=== PATIENT | male | born 1960 | race Caucasian/White ===

== ENCOUNTER 2024-12-03 10:29 | Emergency (ER) | payer OTHER ==
[~2024-12-03] VITALS: Ht 167.6 cm; Wt 95.5 kg
[~2024-12-03 10:29] MED LIST: CALC1TAB15 PO; CARI350T PO; INDO-16 PO; LISI-892 PO; METH2.5T7 PO; MULT1CAP32 PO
[2024-12-03] MEDS ORDERED: METF-1185 PO (10:45)
[2024-12-03] MEDS ORDERED: ETAN25SY IM (10:45)
[2024-12-03] MEDS ORDERED: FOLI0.4T6 PO (10:45)
[2024-12-03] MEDS ORDERED: AMLO2.5T96 PO (10:45)
[2024-12-03 10:55] LABS: PLATELET COUNT (AUTO) 291 K/uL (150-450); RED BLOOD CELL COUNT(AUTO) 4.85 MIL/uL (4.50-5.90); RED CELL DISTRIBUTION WIDTH 14.4 % (11.5-14.5); WHITE BLOOD COUNT (AUTO) 6.7 K/uL (4.5-11.0)
[2024-12-03 10:56] LABS: GLUCOMETER DEV NAME(LOC) ER.7; GLUCOSE,POINT OF CARE 152 MG/DL (70-110)
[2024-12-03 11:03] LABS: CALCIUM, TOTAL 9.5 mg/dL (8.8-10.5); CREATININE 1.18 mg/dL (0.60-1.30); GLOMERULAR FILTR. RATE CALC > 60 mL/min (>60); GLUCOSE,RANDOM 148 mg/dL (70-110); SODIUM SERUM 135 mmol/L (136-145); UREA NITROGEN, BLOOD 22 mg/dL (7-18)
[2024-12-03] MEDS ORDERED: MULT-660 PO (11:09)
[2024-12-03 11:12] LABS: TROPONIN I-HIGH SENSITIVITY 5 ng/L (<76)
[2024-12-03 12:55] LABS: TROPONIN I-HIGH SENSITIVITY 5 ng/L (<76)
[2024-12-03] MEDS: KETOROLAC TROMETHAMINE 30 MG/ML VIAL IM ONE (13:41)
[2024-12-03 13:57] VITALS: BP 110/66; PULSE 80; RESP 16; O2SAT 96
== END 2024-12-03 14:32 | disposition home or self-care (01) ==
LOC: EMS 10:31
DX: R07.89 Other chest pain (principal); E11.9 Type 2 diabetes mellitus without complications; I10 Essential (primary) hypertension; M10.9 Gout, unspecified; M19.90 Unspecified osteoarthritis, unspecified site; Z79.899 Other long term (current) drug therapy
CPT/HCPCS: 99285; 71045; 80048; 82962; 84484; 85025; 36415; 93005; 96372; J1885